=== PATIENT | male | born 1975 | race Caucasian/White ===

== ENCOUNTER 2024-08-22 14:11 | Outpatient (REF) | payer MEDICAID, SELFPAY ==
[2024-08-22 19:12] LABS: Abs Immature Grans 0.02 10^3/uL (0.0-0.06); Absolute Basophil Count 0.05 10^3/uL (0.0-0.2); Absolute Eosinophil Count 0.08 10^3/uL (0.0-0.7); Absolute Lymphocyte Count 2.32 10^3/uL (1.2-3.4); Absolute Monocyte Count 0.88 10^3/uL (0.1-0.8); Absolute Neutrophil Count 5.09 10^3/uL (1.2-6.7); Basophils % 0.6 %; Eosinophils % 0.9 %; HGB 15.8 g/dL (13.5-17.5); Immature Grans % 0.2 %; Lymphocytes % 27.5 %; MCH 32.7 pg (27.0-33.0); MCHC 33.6 % (32.0-36.0); MCV 97 fL (80-95); MPV 10.7 fL (8.0-11.0); Monocytes % 10.4 %; Neutrophils % 60.4 %; Platelet Count 223 10^3/uL (130-400); RBC 4.83 10^6/uL (4.36-5.78); RDW 11.4 % (11.8-14.1); RDW-SD 41.1 fL; WBC 8.44 10^3/uL (4.4-10.8)
[2024-08-22 19:36] LABS: ALT 27 U/L (16-63); AST 19 U/L (15-37); Albumin 4.6 g/dL (3.4-5.0); Alkaline Phosphatase 73 U/L (46-116); Anion Gap 11.9 mmol/L (3-11); BUN 15 mg/dL (7-18); Bilirubin, Total 0.38 mg/dL (0.2-1.0); CO2 28.1 mmol/L (21.0-32.0); Calcium 9.8 mg/dL (8.5-10.1); Chloride 104 mmol/L (98-107); Estimated GFR 92.84 (mL/min/1.73m2); FREE T4 0.89 ng/dL (0.76-1.46); Glucose 89 mg/dL (74-106); Potassium 4.6 mmol/L (3.5-5.1); Sodium 144 mmol/L (136-145); TSH 3.89 uIU/mL (0.36-3.74); Total Protein 8.3 g/dL (6.4-8.2)
[2024-08-22 19:46] LABS: T4 10.6 ug/dL (4.7-13.3)
[2024-08-23 18:43] LABS: T3, Total 145 ng/dL (97-169)
== END 2024-08-22 14:12 | disposition home or self-care (01) ==
LOC: NCHCN 14:11
PROVIDERS: Visit Provider Family Medicine
DX: E04.1 Nontoxic single thyroid nodule (principal); R09.89 Other specified symptoms and signs involving the circulatory and respiratory systems
CPT/HCPCS: 80053; 84436; 84439; 84443; 84480; 85025

== ENCOUNTER 2024-08-29 01:09 | Outpatient (CLI) | payer MEDICAID, SELFPAY ==
--- NOTE | 2024-08-29 | DI.US_ITS ---
Exam(s) US THYROID EXAM: US THYROID CLINICAL HISTORY: NONTOXIC SINGLE THYROID NODULE, E04.1, LUMP IN THROAT SENSATION. TECHNIQUE: Ultrasound thyroid performed using standard protocol. COMPARISON: No exams were available for comparison FINDINGS: Both thyroid lobes exhibit normal size and homogeneous echotexture. There are no thyroid nodules lay dent. Isthmus also appears unremarkable. RIGHT THYROID LOBE: Measures 1.8 cm AP x 1.9 cm wide x 5.3 cm craniocaudal ISTHMUS: Normal thickness. There are no nodules in the isthmus. LEFT THYROID LOBE: Measures 1.9 cm AP x 2.0 wide x 5.3 cm craniocaudal LYMPH NODES: There is a single small benign-appearing left-sided lymph node in the neck measuring 1.2 x 0.8 x 0.3 cm. IMPRESSION: 1. Normal appearing thyroid gland. No nodules. Normal size. 2. Single small benign-appearing lymph node in left side of the neck measuring 12 x 8 x 3 mm 3. There is no significant lymphadenopathy. DATA REPOSITORY:
== END 2024-08-29 01:29 ==
LOC: DI 01:09
PROVIDERS: PCP Family Medicine; Visit Provider Family Medicine
DX: E04.1 Nontoxic single thyroid nodule (principal)
CPT/HCPCS: 76536

== ENCOUNTER 2025-03-01 01:16 | Outpatient (CLI) | payer MEDICAID, SELFPAY ==
--- NOTE | 2025-03-01 | DI.CT_ITS ---
Exam(s) CT NECK W EXAM: CT NECK W INDICATION: Persistent sensation of lump in throat, R09.A2-FB sensation, throat. COMPARISON: No exams were available for comparison TECHNIQUE: FINDINGS: VISUALIZED PARANASAL SINUSES: There is mild mucosal thickening in the maxillary sinuses but no fluid levels therein. Sphenoid and frontal sinuses are clear. There is some mild mucosal thickening in ethmoidal air cells. No mastoid effusions. NASOPHARYNX: Unremarkable ORODENTAL: No acute findings. OROPHARYNX: Unremarkable. No masses evident. No retropharyngeal abscess. No radiopaque foreign bodies. HYPOPHARYNX: Unremarkable. Valleculae and epiglottis and aryepiglottic folds appear normal. No radiopaque foreign bodies. VOCAL CORDS: Unremarkable. No masses evident. Subglottic airway appears unremarkable. THYROID GLAND: Unremarkable. Normal size and no obvious nodules. SALIVARY GLANDS: Unremarkable. No significant findings in the parotid and submandibular glands. LYMPH NODES: There is no adenopathy evident in the neck and supraclavicular regions. OTHER: VISUALIZED LUNG APICES: No significant findings. IMPRESSION: 1. No significant findings on this CT scan of the soft tissues of the neck. RADIATION DOSE DELIVERED: 344.6mGy.cm Total DLP DATA REPOSITORY: All CT scans at this facility are submitted to the National Radiology Data Registry (NRDR) Dose Index Registry (DIR) with the [employer] ([employer]). RADIATION OPTIMIZATION: All CT scans at this facility use at least one of these dose optimization techniques: automated exposure control; mA and/or kV adjustment per patient size (includes targeted exams where dose is matched to clinical indication); or iterative reconstruction.
[2025-03-01] MEDS: Normal Saline - Diluent 50 ML VIAL IJ (08:58)
[2025-03-01] MEDS: Omnipaque 350 MG/ML 500 ML BTL-Imaging package IJ (08:59)
== END 2025-03-01 01:36 ==
LOC: DI 01:16
PROVIDERS: PCP Family Medicine; Visit Provider Family Medicine
DX: R09.A2 Foreign body sensation, throat (principal)
CPT/HCPCS: 70491